=== PATIENT | male | born 1975 | race Caucasian/White ===

== ENCOUNTER 2023-10-04 15:34 | Outpatient (CLI) | payer MEDICAID, SELFPAY ==
[2023-10-04 17:12] LABS: Anion Gap 14.5 (5-19); Blood Urea Nitrogen 21 mg/dL (6-20); Calcium 9.3 mg/dL (8.5-10.5); Carbon Dioxide 27 mmol/L (22-29); Chloride 99 mmol/L (98-107); Glomerular Filtration Rate 80.1 mL/min (90-130); Glucose 266 mg/dL (65-115); Osmolality Calculated 294 mOsm/kg (285-295); Potassium 4.5 mmol/L (3.5-5.1); Sodium 136 mmol/L (136-145)
== END 2023-10-04 15:35 | disposition home or self-care (01) ==
LOC: LAB 15:35
PROVIDERS: PCP Family Medicine; Visit Provider Ophthalmology
DX: E10.3513 Type 1 diabetes mellitus with proliferative diabetic retinopathy with macular edema, bilateral (principal)
CPT/HCPCS: 36415; 80048

== ENCOUNTER 2023-10-26 11:56 | Emergency (ER) | payer MEDICAID, SELFPAY ==
[2023-10-26 12:03] VITALS: BP 153/81; PULSE 78; RESP 18; TEMP 36.4; O2SAT 92; BMI 24.2
--- NOTE | 2023-10-26 12:07 | ED_ITS ---
HPI - Recheck/Abnormal Lab/Rx 2 General: Chief Complaint: Recheck/Abnormal Lab/Rx Stated Complaint: insulin Time Seen by Provider: 10/26/23 12:01 History of Present Illness: 48-year-old male who presents emergency room in custody of [facility] he is diabetics blood sugar is elevated in the upper 200s he has an OmniPod but evidently was incarcerated today and does not have access to all of the equipment was what was first told. Later there is a question whether or not he just was not willing to use the equipment. He has not had any vomiting or diarrhea has not recently been ill. Review of Systems 2 Const: Denies: fever(s) or chills Card: Denies: chest pain Resp: Denies: dyspnea GI: Denies: abdominal pain : Denies: dysuria, urinary frequency or urinary urgency Musc: Denies: neck pain or back pain Skin/Breast: Denies: rash PFSH ED 2 PFSH: Medical History Type 1 diabetes Family History Other Cancer Social History Smoking and tobacco/nicotine status: current every day tobacco/nicotine user cigarettes Packs smoked per day: 1 Years cigarettes smoked: 30 Physical Exam 2 Const: GENERAL APPEARANCE: comfortable; not cooperative ORIENTATION/CONSCIOUSNESS: Yes awake, Yes oriented to person, Yes oriented to place and Yes oriented to time HENMT: COMMON NORMALS: normocephalic, atraumatic and hearing grossly normal bilaterally HEAD & SCALP: normocephalic and atraumatic Resp: COMMON NORMALS: normal respiratory effort, No retractions, No use of accessory muscles and clear to auscultation bilaterally AUSCULTATION: clear to auscultation bilaterally Cardio: COMMON NORMALS: regular rate, regular rhythm and No murmurs present (Cardio) RATE: regular rate RHYTHM: regular rhythm GI: COMMON NORMALS: Soft to palpation and No hepatosplenomegaly present A USCULTATION: Yes normoactive bowel sounds PALPATION: Yes Soft to palpation, No Tenderness to palpation present (GI), No Guarding due to palpation present (GI) and Yes No hepatosplenomegaly present Extremity: COMMON NORMALS: normal to inspection, capillary refill normal, no clubbing, cyanosis or edema, no calf tenderness and no pedal edema OTHER: 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 (Not related to infection or osteomyelitis) Neuro: SENSORIUM/ORIENTATION: Yes oriented to person, Yes oriented to place and Yes oriented to time Psych: ATTITUDE: Yes Belligerent attititude/behavior present and Yes aggressive MOOD & AFFECT: Yes irritable Skin: COMMON NORMALS: no rashes or lesions noted GENERAL SKIN EXAM: no rashes or lesions noted Course 2 Vital Signs: Vital signs: Vital Signs Temperature 97.6 F 10/26/23 12:03 Pulse Rate 78 10/26/23 12:03 Respiratory Rate 18 10/26/23 12:03 Blood Pressure 153/81 10/26/23 12:03 Pulse Oximetry 92 10/26/23 12:03 Oxygen Delivery Me thod Room Air 10/26/23 12:03 MDM - Recheck/Abnormal Lab/Rx Medical Decision Making Patient difficult and belligerent during his stay. He was verbally offensive to the nurses and aggressive. He is threatening noncompliance with his OmniPod. At this point I recommend that he has 2 options he can use the OmniPod and the Dexcom like he usually does at home if he can have family members bring the equipment in if that is the issue. The other option would be to use a low-dose sliding scale insulin regular insulin. He stated he did not want to use a Dexcom and OmniPod and instead would do the low-dose sliding scale insulin. He should check his blood sugar 4 times a day was given low-dose sliding scale insulin to use the chart was given in his discharge instructions. Patient asked about a long-acting insulin. Given the short length of time he is going to be doing this and the high probability of hypoglycemia in the setting if he were to suddenly begin using the long-acting insulin I do not recommend this. Understanding from the officer who is accompanying the patient he is on the 72- hour hold and will only be in the custody briefly. Medical Records I reviewed the patient's medical records. Lab Data I reviewed the patient's lab results. 10/26/23 12:20 10/26/23 12:20 Radiology Impressions Chest X-Ray 10/26/23 12:10 Impression: Negative chest. Laboratory Results WBC 9.35 10^3/uL (3.29-11.43) 10/26/23 12:20 RBC 4.79 10^6/uL (3.85-5.65) 10/26/23 12:20 Hgb 14.30 g/dL (11.27-16.99) 10/26/23 12:20 Hct 41.7 % (37-53) 10/26/23 12:20 MCV 87.1 fl (82-101) 10/26/23 12:20 MCH 29.9 pg (27-33) 10/26/23 12:20 MCHC 34.3 g/dL (30-55) 10/26/23 12:20 RDW 12.6 % (12.1-15.1) 10/26/23 12:20 Plt Count 300 10^3/cmm (157-399) 10/26/23 12:20 MPV 9.2 fL (7.4-10.4) 10/26/23 12:20 Neut % (Auto) 70.2 % 10/26/23 12:20 Lymph % (Auto) 13.9 % 10/26/23 12:20 [place] % (Auto) 9.1 % 10/26/23 12:20 Eos % (Auto) 5.5 % 10/26/23 12:20 Baso % (Auto) 1.0 % 10/26/23 12:20 Neut # (Auto) 6.57 10^3/uL (1.8-7.7) 10/26/23 12:20 Lymph # (Auto) 1.3 10^3/uL (0.8-4.8) 10/26/23 12:20 [place] # (Auto) 0.9 10^3/uL (0.2-0.9) 10/26/23 12:20 Eos # (Auto) 0.5 10^3/uL (0.0-0.8) 10/26/23 12:20 Baso # (Auto) 0.1 10^3/uL (0.0-0.1) 10/26/23 12:20 Nucleated RBC % (auto) 0 % 10/26/23 12:20 Nucleated RBCs # 0.0 /100WBC 10/26/23 12:20 Specimen Type Arterial 10/26/23 12:19 Sample Site Radial, left 10/26/23 12:19 ABG pH 7.44 (7.35-7.45) 10/26/23 12:19 ABG pCO2 38.7 mmHg (35-45) 10/26/23 12:19 ABG pO2 78.1 mmHg (80.0-100.0) L 10/26/23 12:19 ABG PO2/FiO2 Ratio 371 10/26/23 12:19 ABG HCO3 26.3 mmol/L (22-26) H 10/26/23 12:19 ABG O2 Saturation 96.7 10/26/23 12:19 ABG Base Excess 2.2 mmol/L (-2.0-2.0) H 10/26/23 12:19 Elvin Test Pos 10/26/23 12:19 A-a O2 Gradient 3.1 mmHg (5-10) L 10/26/23 12:19 Hematocrit 45.3 % (42-52) 10/26/23 12:19 Hgb O2 Saturation 92.8 % (95-100) L 10/26/23 12:19 Carboxyhemoglobin 3.9 %THgb (0.4-20.1) 10/26/23 12:19 Methemoglobin 0.1 % (0.4-1.5) L 10/26/23 12:19 Total Hemoglobin 14.8 g/dL (14-18) 10/26/23 12:19 Sodium 139.0 mmol/L (131-143) 10/26/23 12:19 Potassium 4.3 mmol/L (3.5-5.0) 10/26/23 12:19 Glucose 279.0 mg/dL (70-115) H 10/26/23 12:19 Ionized Calcium 1.2 mmol/L (1.1-1.4) 10/26/23 12:19 O2 Delivery Device Room air 10/26/23 12:19 FiO2 21.0 % 10/26/23 12:19 Computer Operations Analyst ID [place] 10/26/23 12:19 Sodium 138 mmol/L (136-145) 10/26/23 12:20 Potassium 4.3 mmol/L (3.5-5.1) 10/26/23 12:20 Chloride 102 mmol/L (98-107) 10/26/23 12:20 Carbon Dioxide 23 mmol/L (22-29) 10/26/23 12:20 Anion Gap 17.3 (5-19) 10/26/23 12:20 BUN 13 mg/dL (6-20) 10/26/23 12:20 Creatinine 0.8 mg/dL (0.7-1.2) 10/26/23 12:20 GFR Calculation 103.6 mL/min (90-130) 10/26/23 12:20 Glucose 286 mg/dL (65-115) H 10/26/23 12:20 POC Glucose 173 mg/dL (70-110) H 10/26/23 13:27 Calculated Osmolality 297 mOsm/kg (285-295) H 10/26/23 12:20 Calcium 9.0 mg/dL (8.5-10.5) 10/26/23 12:20 Total Bilirubin 0.2 mg/dL (0.15-1.2) 10/26/23 12:20 AST 17 U/L (0-40) 10/26/23 12:20 ALT 18 U/L (0-41) 10/26/23 12:20 Alkaline Phosphatase 113 U/L (40-130) 10/26/23 12:20 Total Protein 6.8 g/dL (6.6-8.7) 10/26/23 12:20 Albumin 3.9 g/dL (3.5-5.2) 10/26/23 12:20 Globulin 2.9 g/dL (1.3-4.6) 10/26/23 12:20 Lipase 48 U/L (13-60) 10/26/23 12:20 Urine Color Yellow (Yellow) 10/26/23 13:31 Urine Appearance Clear (CLEAR) 10/26/23 13:31 Urine pH 6.0 (5-7) 10/26/23 13:31 Ur Specific [place] 1.017 (1.005-1.030) 10/26/23 13:31 Urine Protein 2+ (Negative) A 10/26/23 13:31 Urine Glucose (UA) 3+ (Normal) H 10/26/23 13:31 Urine Ketones Negative (Negative) 10/26/23 13:31 Urine Blood Negative (Negative) 10/26/23 13:31 Urine Nitrate Negative (Negative) 10/26/23 13:31 Urine Bilirubin Negative (Negative) 10/26/23 13:31 Urine Urobilinogen 1.0 mg/dL (Negative) 10/26/23 13:31 Ur Leukocyte Esterase Negative (Negative) 10/26/23 13:31 Urine RBC 0-2 /hpf (0-2) 10/26/23 13:31 Urine WBC 0-5 /hpf (0-5) 10/26/23 13:31 Ur Squamous Epith Cells 0-5 /hpf (0-5) 10/26/23 13:31 Amorphous Sediment Not Reportable 10/26/23 13:31 Urine Bacteria None seen /hpf (NONE) 10/26/23 13:31 Hyaline Casts 0-4 /lpf H 10/26/23 13:31 Serum Ketones Negative (Negative) 10/26/23 12:20 All radiology interpretation(s) finalized by discharge Discharge Plan Discharge Patient Disposition: Home Clinical Impression: Type 1 diabetes Condition: Stable Prescriptions: New insulin regular human 100 unit/mL solution 1 unit SUBCUT Q6H PRN (Reason: hyperglycemia) Qty: 3 0RF Rx Instructions: Use with meals and at bedtime. Give dose recommended on the sliding scale insulin chart you were given (DME) BD Insulin Syringe 0.5 mL 29 gauge x 1/2 syringe See Rx Instructions .Route Qty: 10 0RF Rx Instructions: As directed No Action insulin lispro [Humalog KwikPen Insulin] 100 unit/mL insulin pen 10 unit SUBCUT TID Rx Instructions: USE VIA CONTINUOUS PUMP (DME) Dexcom G6 Transmitter Device See Rx Instructions .ROUTE .MEDSUPPLY Qty: 1 3RF Rx Instructions: change every 3 months (DME) Omnipod 5 G6 Intro Kit (Gen 5) Cartridge See Rx Instructions .Route Qty: 1 0RF Rx Instructions: As directed (DME) Omnipod 5 G6 Pods (Gen 5) Cartridge See Rx Instructions .ROUTE .COMPLEX Qty: 10 3RF Dose Instruction: USE DIRECTED - CHANGE EVERY 3 DAYS Rx Instructions: USE DIRECTED - CHANGE EVERY 3 DAYS (DME) Dexcom G6 Sensor Device See Rx Instructions .ROUTE .COMPLEX Qty: 9 0RF Dose Instruction: USE DIRECTED CHANGING EVERY 10 DAYS Rx Instructions: USE DIRECTED CHANGING EVERY 10 DAYS atorvastatin 20 mg tablet 20 mg PO DAILY lisinopril 20 mg tablet 20 mg PO DAILY Discharge Orders: Discharge ED (Routine); Ordered 10/26/23 Ordered By: Han Lamar Referrals: Del Quarles MD [Primary Care Provider] - Discharge Diet: Diabetic Discharge Activity: Resume usual activity Patient Instructions: Opioid Safety, Pain Management Activity Restrictions/Additional Instructions: [facility]. It is very important that you follow up as instructed or that you return to the Emergency Department should you have concerns or if your condition changes or worsens in any way. Your evaluated in the emergency room for elevated blood sugar. There is no sign of DKA there are no ketones anion gap was normal electrolytes not show significant abnormality and your ABG was normal. Recommend that you continue to monitor and control your blood sugar. There are 2 options to control your blood sugar 1. Continue to use your Dexcom and OmniPod as you have previously been prescribed. 2. Use an Accu-Chek to check your blood sugar 4 times daily and insulin needles and syringes can be prescribed to use until you are able to resume using the Dexcom and Omnipod. You expressed that you would prefer to do the low-dose sliding scale insulin. Scripts were written for insulin for you. Coding Level of Care Code ED Water Purifier for Dru Umaña
[2023-10-26 12:09] LABS: Glucose Point of Care 282 mg/dL (70-110)
--- NOTE | 2023-10-26 12:10 | ECG_ITS ---
[facility] Test Date: 2023-10-26 Pat Name: Sebas Villalba Department: Room: Gender: Male Process Improvement Analyst: : 1975 Requested By: Han Green Order Number: [id number] Teresa MD: Vincent Russo M.D. Measurements Intervals [place] Rate: 79 P: 56 RI: 142 QRS: 85 QRSD: 92 T: 72 QT: 364 QTc: 418 Interpretive Statements SINUS RHYTHM No previous ECG available for comparison Electronically Signed On 10-26-2023 15:34:25 CDT by Vincent Russo M.D. [email or web address]
--- NOTE | 2023-10-26 12:10 | XR_ITS ---
WS: [id number] Portable AP upright chest, 10/26/2023 Clinical Data: dyspnea/cough Comparison: None. Findings: No nodules, masses or effusions are seen. The heart is normal. The pulmonary vascularity is not increased. No pneumonia or pneumothorax is seen. There is a healed fracture of the midshaft of t he left clavicle. XR/XR chest 1V portable [id number] Impression: Negative chest.
[2023-10-26 12:27] LABS: Basophils # 0.1 10^3/uL (0.0-0.1); Eosinophils # 0.5 10^3/uL (0.0-0.8); Eosinophils % 5.5 %; Hematocrit 41.7 % (37-53); Lymphocytes # 1.3 10^3/uL (0.8-4.8); Lymphocytes % 13.9 %; Mean Corpuscular HGB Conc 34.3 g/dL (30-55); Mean Corpuscular Hemoglobin 29.9 pg (27-33); Mean Corpuscular Volume 87.1 fl (82-101); Mean Platelet Volume 9.2 fL (7.4-10.4); Monocytes # 0.9 10^3/uL (0.2-0.9); Monocytes % 9.1 %; Neutrophils # 6.57 10^3/uL (1.8-7.7); Neutrophils % 70.2 %; Nucleated Red Blood Cells % 0 %; Platelet Count 300 10^3/cmm (157-399); Red Blood Count 4.79 10^6/uL (3.85-5.65); Red Cell Distribution Width 12.6 % (12.1-15.1); White Blood Count 9.35 10^3/uL (3.29-11.43)
[2023-10-26 12:30] LABS: ABG PCO2 38.7 mmHg (35-45); ABG PH Result 7.44 (7.35-7.45); Alveolar-Arterial Oxygen Gradi 3.1 mmHg (5-10); Arterial Blood Gas Hematocrit 45.3 % (42-52); Base Excess ABG 2.2 mmol/L (-2.0-2.0); Blood Gas Allen Test Pos; Blood Gas Sample Type Arterial; Carboxyhemoglobin 3.9 %THgb (0.4-20.1); HCO3 ABG 26.3 mmol/L (22-26); HGB O2 Sat 92.8 % (95-100); Ionized Calcium Level - ABG 1.2 mmol/L (1.1-1.4); Methemoglobin 0.1 % (0.4-1.5); Oxygen Saturation ABG 96.7; PO2 ABG 78.1 mmHg (80.0-100.0); Potassium Level - ABG 4.3 mmol/L (3.5-5.0); Total Hemoglobin 14.8 g/dL (14-18)
[2023-10-26 12:31] LABS: Blood Gas Operator Identificat MONRO; Blood Gas Sample Site Radial, left; Oxygen Device ROOM AIR; PO2 FiO2 Ratio Arterial Blood 371
[2023-10-26 12:42] LABS: Ketone (Acetest) Serum Negative (Negative)
[2023-10-26] MEDS: sodium chloride 0.9% 1,000 ML 999 ML IV ×2 (12:50→13:30)
[2023-10-26 12:53] LABS: Alanine Aminotransferase 18 U/L (0-41); Albumin Level 3.9 g/dL (3.5-5.2); Alkaline Phosphatase 113 U/L (40-130); Anion Gap 17.3 (5-19); Aspartate Amino Transferase 17 U/L (0-40); Blood Urea Nitrogen 13 mg/dL (6-20); Carbon Dioxide 23 mmol/L (22-29); Chloride 102 mmol/L (98-107); Creatinine Clr Calc Pharmacy 105.7481; Globulin 2.9 g/dL (1.3-4.6); Glomerular Filtration Rate 103.6 mL/min (90-130); Glucose 286 mg/dL (65-115); Lipase 48 U/L (13-60); Osmolality Calculated 297 mOsm/kg (285-295); Potassium 4.3 mmol/L (3.5-5.1); Sodium 138 mmol/L (136-145); Total Bilirubin 0.2 mg/dL (0.15-1.2); Total Protein 6.8 g/dL (6.6-8.7)
[2023-10-26 12:54] LABS: Glucose Point of Care 261 mg/dL (70-110)
[2023-10-26] MEDS: insulin regular-human 100 units/1 mL 2 UNIT IVP (12:55)
[2023-10-26 13:33] LABS: Glucose Point of Care 173 mg/dL (70-110)
[2023-10-26 13:43] LABS: Charge for UA Resulting for Rev
[2023-10-26 13:45] LABS: Bilirubin Urine Negative (Negative); Blood Urine Negative (Negative); Glucose Urine UA 3+ (Normal); Ketones Urine Negative (Negative); Leukocyte Esterase Urine Negative (Negative); Nitrate Urine Negative (Negative); Protein Urine 2+ (Negative); Specific Gravity, Urine 1.017 (1.005-1.030); Urine Appearance Clear (CLEAR); Urine Color Yellow (Yellow)
[2023-10-26 13:50] LABS: Bacteria Urine None Seen /hpf; Hyaline Casts Urine 0-4 /lpf; RBC Urine 0-2 /hpf (0-2); Squamous Epithelial Cell Urine 0-5 /hpf (0-5); WBC Urine 0-5 /hpf (0-5)
[2023-10-26 14:23] VITALS: BP 148/69; PULSE 79; O2SAT 98
--- NOTE | 2023-10-26 14:29 | PC.NURSE ---
pt arrived in restraints applied by [employer] prior to arrival. [employer] officer at bedside at all times.
== END 2023-10-26 14:40 | disposition home or self-care (01) ==
PROVIDERS: Emergency Provider Family Medicine; PCP Family Medicine
DX: E10.9 Type 1 diabetes mellitus without complications (principal); Z79.4 Long term (current) use of insulin; F17.210 Nicotine dependence, cigarettes, uncomplicated
CPT/HCPCS: 36415; 36416; 36600; 71045; 80051; 80053; 81003; 81015; 82009; 82330; 82805; 82962; 83690; 85025; 93005; 96361; 96374; 99285; J1815; J7030

== ENCOUNTER → 2024-03-18 11:11 | Outpatient (BNVA) | payer MEDICAID, SELFPAY | PROVIDERS: PCP Family Medicine; Visit Provider Internal Medicine | DX: E78.2 Mixed hyperlipidemia (principal); E10.9 Type 1 diabetes mellitus without complications | CPT/HCPCS: 36415; 80053; 80061; 82044; 83036 ==

== ENCOUNTER 2024-10-11 10:09 | Outpatient (CLI) | payer MEDICAID, SELFPAY ==
[2024-10-11 10:53] LABS: Estmated Average Glucose 186; Hemoglobin A1C 8.1 % (4.0-6.0)
[2024-10-11 10:56] LABS: Alanine Aminotransferase 30 U/L (0-41); Albumin Level 3.7 g/dL (3.5-5.2); Alkaline Phosphatase 103 U/L (40-130); Anion Gap 16.2 (5-19); Aspartate Amino Transferase 50 U/L (0-40); Blood Urea Nitrogen 10 mg/dL (6-20); Calcium 9.2 mg/dL (8.5-10.5); Carbon Dioxide 28 mmol/L (22-29); Chloride 94 mmol/L (98-107); Cholesterol 180 mg/dL (0-200); Globulin 2.7 g/dL (1.3-4.6); Glucose 131 mg/dL (65-115); HDL Cholesterol 110 mg/dL (60-100); Osmolality Calculated 279 mOsm/kg (285-295); Potassium 4.2 mmol/L (3.5-5.1); Sodium 134 mmol/L (136-145); Total Protein 6.4 g/dL (6.6-8.7); Triglycerides 71 mg/dL (0-150)
[2024-10-11 10:58] LABS: Creatinine Urine, Random 43 mg/dL (39-259)
[2024-10-11 11:15] LABS: Microalbum Creatinine Ratio Ur 884 mg/dL (0-20)
== END 2024-10-11 10:10 | disposition home or self-care (01) ==
LOC: LAB 10:12
PROVIDERS: PCP Family Medicine; Visit Provider Internal Medicine
DX: E78.2 Mixed hyperlipidemia (principal); E10.9 Type 1 diabetes mellitus without complications
CPT/HCPCS: 36415; 80053; 80061; 82044; 83036

== ENCOUNTER 2024-11-05 08:00 | Outpatient (CLI) | payer MEDICAID, SELFPAY ==
[2024-11-05 09:16] LABS: Alanine Aminotransferase 31 U/L (0-41); Albumin Level 3.9 g/dL (3.5-5.2); Alkaline Phosphatase 144 U/L (40-130); Anion Gap 13.1 (5-19); Aspartate Amino Transferase 33 U/L (0-40); Blood Urea Nitrogen 15 mg/dL (6-20); Calcium 9.1 mg/dL (8.5-10.5); Carbon Dioxide 27 mmol/L (22-29); Chloride 101 mmol/L (98-107); Globulin 3.2 g/dL (1.3-4.6); Glucose 120 mg/dL (65-115); Osmolality Calculated 286 mOsm/kg (285-295); Potassium 4.1 mmol/L (3.5-5.1); Sodium 137 mmol/L (136-145); Total Protein 7.1 g/dL (6.6-8.7)
== END 2024-11-05 08:01 | disposition home or self-care (01) ==
LOC: LAB 08:03
PROVIDERS: PCP Family Medicine; Visit Provider Internal Medicine
DX: E10.9 Type 1 diabetes mellitus without complications (principal)
CPT/HCPCS: 36415; 80053; 84681; 86337; 86341